=== PATIENT | female | born 1960 | race Caucasian/White ===

== ENCOUNTER 2016-12-18 20:19 | Emergency (ER) | payer MEDICARE, OTHER ==
[~2016-12-18] VITALS: Ht 170.2 cm; Wt 98.0 kg
[~2016-12-18 20:19] MED LIST: AMLO5TAB4 PO; ASPI-664 PO; ATOR40TA68 PO; CANA300T PO; FURO40TA4 PO; GEMF600T PO; GLIM4TAB PO; IBUP-1542 PO; LANT3I SC; LINA1TAB7 PO; LIRA0.6P SQ; LISI20TA11 PO; LORA1TAB PO; MECL-77 PO; METO50TA16 PO
[2016-12-18 20:38] VITALS: Ht 170.2 cm; Wt 98.0 kg
[2016-12-18] MEDS ORDERED: DICLOFENAC SODIUM 37.5 MG/ML VIAL IV STA (21:00)
[2016-12-18] MEDS ORDERED: SODIUM CHLORIDE 0.9% 1L BAG IV* STA (21:00)
[2016-12-18] MEDS ORDERED: PIPER-TAZO 3.375 GM IV (PMX) 100 ML IVPB STA (21:00)
[2016-12-18] MEDS ORDERED: VANCOMYCIN 1 GM (PMX) 250 ML IVPB ONE (21:00)
--- NOTE | 2016-12-18 21:07 | ERD ---
ER Documentation Chief Complaint Date/Time DATE: 12/18/16 TIME: 21:04 Chief Complaint insect bite 3 days ago to the left foot; redness, swollen, and warm to touc HPI -year-old female states that she believes she had an accident bite 3 days ago. She is accompanied by family including her daughter. Is been increasing redness swelling and a feeling of heat to the foot. He also had increasing pain. She is diabetic. She emphatically denies trauma to the foot. She has had no fevers or chills. ROS All systems reviewed and are negative except as per history of present illness. Medications Home Meds Active Scripts Naproxen* (Naproxen*) 375 Mg Tablet, 375 MG PO BID Y for PAIN, #20 TAB Prov:MORIAHQUETA DO 12/18/16 Cephalexin* (Keflex*) 500 Mg Capsule, 500 MG PO Q6, #40 CAP Prov:MORIAHQUETA DO 12/18/16 Sulfamethoxazole/Trimethoprim* (Bactrim Ds* Tablet) 1 Each Tablet, 1 TAB PO BID , #20 TAB Prov:MORIAHQUETA DO 12/18/16 Ibuprofen* (Motrin*) 600 Mg Tab, 600 MG PO Q6H Y for PAIN AND OR ELEVATED TEMP, #30 TAB Prov:BIA LOWE 06/02/16 Reported Medications Linagliptin/Metformin HCl (Jentadueto Xr 2.5 mg-1,000 mg) 1 Each Tab.bp.24h, 1 EACH PO BID, TAB 06/02/16 Meclizine Hcl* (Meclizine Hcl*) 25 Mg Tablet, 25 MG PO Q8H Y for DIZZINESS, TAB 06/02/16 Atorvastatin* (Atorvastatin*) 40 Mg Tablet, 40 MG PO QHS, #30 TAB 06/02/16 Aspirin* (Aspirin* EC) 81 Mg Tablet.dr, 81 MG PO DAILY, TAB 06/02/16 Amlodipine Besylate* (Norvasc*) 5 Mg Tablet, 5 MG PO DAILY, TAB 06/02/16 Lisinopril* (Lisinopril*) 20 Mg Tablet, 20 MG PO DAILY, #30 TAB 06/02/16 Gemfibrozil* (Lopid*) 600 Mg Tablet, 600 MG PO BID, TAB 06/02/16 Metoprolol Succinate* (Toprol XL*) 50 Mg Tab.er.24h, 50 MG PO BID, #30 TAB 06/02/16 Glimepiride* (Glimepiride*) 4 Mg Tablet, 4 MG PO WITH BREAKFAST DINNE, TAB 06/02/16 Insulin Glargine* (Lantus*) 100 Unit/Ml Soln, 20 UNIT SC QHS, #1 VIAL 06/02/16 Lorazepam* (Lorazepam*) 1 Mg Tablet, 1 MG PO HS, #30 TAB 06/02/16 Liraglutide (Victoza 2-Herson) 0.6 Mg/0.1 Ml Pen.injctr, 0.6 MG SQ DAILY, SYR 06/02/16 Canagliflozin (Invokana) 300 Mg Tablet, 300 MG PO DAILY, TAB 06/02/16 Furosemide* (Furosemide*) 40 Mg Tablet, 40 MG PO DAILY, TAB 06/02/16 Allergies Allergies: Coded Allergies: No Known Allergy (Unverified , 06/02/16) PMhx/Soc History of Surgery: No Anesthesia Reaction: No Hx Neurological Disorder: No Hx Respiratory Disorders: No Hx Cardiac Disorders: Yes (HTN) Hx Psychiatric Problems: No Hx Miscellaneous Medical Probl: Yes (DM1) Hx Alcohol Use: No Hx Substance Use: No Hx Tobacco Use: No Smoking Status: Never smoker Physical Exam Vitals Vital Signs Date Time Temp Pulse Resp B/P Pulse Ox O2 Delivery O2 Flow Rate FiO2 12/18/16 20:38 99.3 80 18 136/60 98 Physical Exam Const: [] No distress Head: Atraumatic Eyes: Normal Conjunctiva ENT: Normal External Ears, Nose and Mouth. Neck: Full range of motion..~ No meningismus. Resp: Clear to auscultation bilaterally Cardio: Regular rate and rhythm, no murmurs Skin: No petechiae or rashes Ext: No cyanosis,, significant dark erythema to the dorsal forefoot all the way up to the anterior with purpuric discoloration the anterior sole of the foot with swelling and calor present. Neur: Awake and alert and oriented 3, no focal deficits Psych: Normal Mood and Affect Result Diagram: 12/18/16212912/18/162129 Results 24 hrs Laboratory Tests Test 12/18/16 21:30 White Blood Count 10.410^3/ul Red Blood Count 4.2010^6/ul Hemoglobin 8.4g/dl Hematocrit 26.6% Mean Corpuscular Volume 63.3fl Mean Corpuscular Hemoglobin 20.0pg Mean Corpuscular Hemoglobin Concent 31.6g/dl Red Cell Distribution Width 15.6% Platelet Count 72450^3/UL Mean Platelet Volume 11.2fl Neutrophils % 78.2% Lymphocytes % 12.5% Monocytes % 7.3% Eosinophils % 1.1% Basophils % 0.2% Nucleated Red Blood Cells % 0.0/100WBC Neutrophils # 8.110^3/ul Lymphocytes # 1.310^3/ul Monocytes # 0.810^3/ul Eosinophils # 0.110^3/ul Basophils # 0.010^3/ul Nucleated Red Blood Cells # 0.010^3/ul Sodium Level 135mmol/L Potassium Level 4.5mmol/L Chloride Level 104mmol/L Carbon Dioxide Level 24mmol/L Anion Gap 12 Blood Urea Nitrogen 13mg/dl Creatinine 0.72mg/dl Glucose Level 226mg/dl Calcium Level 9.3mg/dl Current Medications Medications (Trade) Dose Ordered Sig/Rica Route PRN Reason Start Time Stop Time Status Last Admin Dose Admin Sodium Chloride 3040 ml 3,040 ml BOLUS OVER 2 HOURS STAT IV* 12/18/16 21:00 12/18/16 21:03 DC 12/18/16 21:28 Vancomycin HCl 250 ml @ 125 mls/hr ONCE ONCE IVPB 12/18/16 21:00 12/18/16 22:59 DC 12/18/16 21:28 Piperacillin Sod/ Tazobactam Sod (Zosyn 3.375gm/ 100 ml (Pmx)) 100 ml @ 200 mls/hr ONCE STAT IVPB 12/18/16 21:00 12/18/16 21:29 DC 12/18/16 21:29 Diclofenac Sodium (Dyloject) 37.5 mg ONCE STAT IV 12/18/16 21:00 12/18/16 21:03 DC 12/18/16 21:28 Diphtheria/ Tetanus/Acell Pertussis (Adacel) 0.5 ml ONCE ONCE IM* 12/18/16 23:00 12/18/16 23:01 DC 12/18/16 22:54 Procedures/MDM Significant cellulitis in a diabetic foot. Patient is adamant about wanting to go home. I have given her dose of vancomycin and Zosyn in the emergency room. She has no laboratories consistent with overwhelming systematic infection and her vital signs are stable currently. I will respect her wishes and discharge her with Bactrim and Keflex as well as naproxen for the pain. She was given a Tdap shot because there is a break in her skin between her big toe and second toe. Patient's hemoglobin is approximately 2 points lower than it was last time. Patient states that she know she has anemia. She currently denies any symptoms of lightheadedness dizziness tiredness or weakness. Going to discharge her with iron sulfate as well as was printed her labs and instructed to follow-up in 2-3 days. I am also having her return to the emergency room on Thursday for recheck of her foot to ensure that is healing properly to prevent limb loss. Departure Diagnosis: Primary Impression: Cellulitis of foot, left Additional Impressions: Hyperglycemia due to type 2 diabetes mellitus Microcytic anemia QUETA MAJOR DO December 18, 2016 21:07
[2016-12-18 21:48] LABS: ADD SCAN DIFF NO
[2016-12-18 21:50] LABS: BASOPHILS % 0.2 % (0.0-2.0); EOSINOPHILS # 0.1 10^3/ul (0.0-0.5); EOSINOPHILS % 1.1 % (0.0-7.0); HEMATOCRIT 26.6 % (37.0-47.0); HEMOGLOBIN 8.4 g/dl (12.0-16.0); LYMPHOCYTES # 1.3 10^3/ul (0.8-2.9); LYMPHOCYTES % 12.5 % (15.0-51.0); MEAN CORPUSCULAR HGB CONC 31.6 g/dl (32.0-37.0); MEAN CORPUSCULAR VOLUME 63.3 fl (82.0-101.0); MEAN PLATELET VOLUME 11.2 fl (7.4-10.4); MONOCYTE # 0.8 10^3/ul (0.3-0.9); MONOCYTES % 7.3 % (0.0-11.0); NEUTROPHIL # 8.1 10^3/ul (1.6-7.5); NEUTROPHILS % 78.2 % (39.0-77.0); PLATELET COUNT 294 10^3/UL (140-415); RED CELL DISTRIBUTION WIDTH 15.6 % (11.5-14.5); WHITE BLOOD COUNT 10.4 10^3/ul (4.8-10.8)
[2016-12-18 22:08] LABS: CALCIUM 9.3 mg/dl (8.4-10.2); CREATININE 0.72 mg/dl (0.44-1.00); POTASSIUM 4.5 mmol/L (3.5-5.1)
[2016-12-18] MEDS ORDERED: DIPHTH/TET/ACEL PERTUSS (ADULT) 0.5 ML VIAL IM* ONE (23:00)
[2016-12-18] MEDS ORDERED: SULF1TAB31 PO (23:23)
[2016-12-18] MEDS ORDERED: NAPR-685 PO (23:23)
[2016-12-18] MEDS ORDERED: CEPH-443 PO (23:23)
[2016-12-18] MEDS ORDERED: FER325 PO (23:31)
--- NOTE | 2016-12-19 01:22 | RADRPT ---
PROCEDURE: Left foot. CLINICAL INDICATION: Pain. TECHNIQUE: Three views including AP, lateral and oblique views of the left foot were obtained. T he images were reviewed on a PACS workstation. COMPARISON: None. FINDINGS: There is no fracture, dislocation or bone destruction. The joint spaces are within normal limits. Bone mineralization is within normal limits. There is no radiopaque foreign body or abnormal calcif ication. There is a plantar calcaneal spur. There is no abnormal cortical lucency or periosteal irina ction. There is soft tissue swelling about the forefoot. IMPRESSION: Forefoot soft tissue swelling. Plantar calcaneal spur. Otherwise unremarkable left foot. .Rg Marie MD, Date Time Electronically viewed and signed by .Rg Marie MD, MD on 12/19/2016 01:22 .T/
== END 2016-12-19 02:01 | disposition home or self-care (01) ==
LOC: E/R 20:19
DX: L03.116 Cellulitis of left lower limb (principal); E11.65 Type 2 diabetes mellitus with hyperglycemia; D50.9 Iron deficiency anemia, unspecified; I10 Essential (primary) hypertension; Z23 Encounter for immunization; Z79.4 Long term (current) use of insulin; Z79.82 Long term (current) use of aspirin; Z79.84 Long term (current) use of oral hypoglycemic drugs
CPT/HCPCS: 73630; 80048; 85025; 87040; 90471; 90715; 96374; 96375; 99284; J2543; J3370; J7030